=== PATIENT | male | born 1995 | race Caucasian/White ===

== ENCOUNTER 2021-05-03 21:42 | Emergency (ER) | payer OTHER ==
[~2021-05-03] VITALS: Ht 162.6 cm; Wt 81.6 kg
[2021-05-03 21:44] VITALS: BP 124/75
--- NOTE | 2021-05-03 21:44 | NUR ---
MATTHEW LAYTON TO ER BED 04 VIA EMS
[2021-05-04 01:06] VITALS: BP 132/72
--- NOTE | 2021-05-04 01:11 | NUR ---
PATIENT DC HOME STABLE NOT COMPLAINING OF PAIN AT THIS TIME VITALS SIGNS IN NORMAL LIMITS ALL THE DC INSTRUCTION GAVE AND EXPLAINED WE RECOMMEND TO COMING BACK TO THE HOSPITALS IF THE SYMPTOMS GET WORSE OR DOESNT IMPROVING ALSO TO FOLLOW UP WITH PCP //Laura RT Addendum: 05/04/21 at 0116 by [email or web address] I TAVO RN AND I WROTE RT BY MISTAKE
== END 2021-05-04 01:11 | disposition home or self-care (01) ==
LOC: MED 21:42
DX: S92.352A Displaced fracture of fifth metatarsal bone, left foot, initial encounter for closed fracture (principal); W22.8XXA Striking against or struck by other objects, initial encounter; Y93.89 Activity, other specified; Y92.89 Other specified places as the place of occurrence of the external cause; Y99.8 Other external cause status
CPT/HCPCS: 29515; 73630; 99283; Q0092